=== PATIENT | female | born 1960 | race Caucasian/White ===

== ENCOUNTER → 2024-01-15 13:59 | Outpatient (CLI) | payer OTHER, SELFPAY ==
[2024-01-15 20:09] LABS: Free T4, Direct Thyroxine 0.99 ng/dL (0.78-2.19)
[2024-01-15 20:23] LABS: Thyroid Stimulating Hormone 6.58 uIU/mL (0.47-4.68)
== END ==
PROVIDERS: PCP Family Medicine; Visit Provider Nurse Practitioner Adult Health
DX: E03.9 Hypothyroidism, unspecified (principal); Z12.31 Encounter for screening mammogram for malignant neoplasm of breast
CPT/HCPCS: 84439; 84443

== ENCOUNTER → 2025-02-20 11:33 | Outpatient (CLI) | payer OTHER, SELFPAY ==
--- NOTE | 2025-02-20 11:34 | DI.MRI.S_ITS ---
MR breast BI wo/w con: 02/20/2025. BI-RADS: 6 CLINICAL: 65-year old female for bilateral diagnostic breast MRI. Patient reports a history of left breast carcinoma diagnosed at age 64. No personal or first- degree family history of breast cancer. The patient had a prior left breast biopsy. The patient is status-post reduction mammoplasty. PRIOR EXAMS Mammogram(s): 01/06/2025, 07/16/2024, 05/29/2024. Breast Procedure(s): 01/19/2025. Exam: 01/19/2025. One Other Exam on 12/13/2022. MRI TECHNIQUE Bilateral breast MRI was performed on a 1.5 Jenna magnet using a dedicated breast coil with mild compression. Axial T1 and T2 STIR sequences were obtained. Dynamic contrast enhanced VIBRANT fat-suppressed sequences were obtained. Delayed sagittal high resolution or sagittal reconstructed isotropic sequence was also obtained. Subtraction images and maximum intensity projection images were obtained. The study was evaluated using [employer] software. IV Contrast: 20 ml ProHance. FIBROGLANDULAR TISSUE Bilateral: C. Heterogeneous fibroglandular tissue. BACKGROUND PARENCHYMAL ENHANCEMENT Bilateral: Minimal symmetrical background parenchymal enhancement. BREAST FINDINGS Right: No suspicious mass, suspicious non-mass enhancement, or other concerning finding identified. Left: Lower Outer at 3:00, Middle depth, 2.5cm: There is non-mass enhancement in linear distribution with kinetic enhancement curve showing slow initial phase and persistent pattern on delayed phase. Associated features include signal void from biopsy marker. Bilateral: There are no abnormal axillary or internal mammary lymph nodes. IMPRESSION: Right * No evidence of malignancy. Left (Non-Mass): Lower Outer at 3:00, Middle depth, 2.5cm * Known Biopsy-Proven Malignancy. RECOMMENDATIONS Left * Recommend appropriate surgical/oncological treatment of known breast cancer. OVERALL ASSESSMENT CATEGORY BI-RADS-6: Known Biopsy-Proven Malignancy. ELECTRONICALLY SIGNED: Deangelo Zelaya M.D. on 02/20/2025 at 09:24:05 PM PT Interpreting Station ID: [id number]
== END ==
LOC: MRI 11:33
PROVIDERS: PCP Family Medicine; Referring Provider Student in an Organized Health Care Education/Training Program; Visit Provider Student in an Organized Health Care Education/Training Program
DX: D05.12 Intraductal carcinoma in situ of left breast (principal); R92.333 Mammographic heterogeneous density, bilateral breasts
CPT/HCPCS: 77049; A9579